=== PATIENT | female | born 1995 | race Hispanic/Latino ===

== ENCOUNTER 2019-07-29 15:24 | Emergency (ER) | payer OTHER | END 2019-07-29 16:57 | disposition home or self-care (01) | LOC: EDH 15:24 | DX: H92.01 Otalgia, right ear (principal) | CPT/HCPCS: 99282 ==

== ENCOUNTER → 2021-10-07 | Outpatient (CLI) | payer OTHER | END | disposition home or self-care (01) | LOC: DTH 09:19 | PROVIDERS: ATTEND Surgery | DX: E66.01 Morbid (severe) obesity due to excess calories (principal); K21.9 Gastro-esophageal reflux disease without esophagitis; E78.00 Pure hypercholesterolemia, unspecified; K76.0 Fatty (change of) liver, not elsewhere classified | CPT/HCPCS: 97803 ==

== ENCOUNTER → 2021-11-05 | Outpatient (CLI) | payer OTHER | END | disposition home or self-care (01) | LOC: DTH 10:41 | PROVIDERS: ATTEND Surgery | DX: Z71.3 Dietary counseling and surveillance (principal); G47.33 Obstructive sleep apnea (adult) (pediatric); K21.9 Gastro-esophageal reflux disease without esophagitis; E78.00 Pure hypercholesterolemia, unspecified; K76.0 Fatty (change of) liver, not elsewhere classified; E66.01 Morbid (severe) obesity due to excess calories; Z68.39 Body mass index [BMI] 39.0-39.9, adult | CPT/HCPCS: 97803 ==

== ENCOUNTER → 2021-12-21 | Outpatient (CLI) | payer OTHER | END | disposition home or self-care (01) | LOC: DTH 08:25 | PROVIDERS: ATTEND Surgery | DX: Z71.3 Dietary counseling and surveillance (principal); E78.00 Pure hypercholesterolemia, unspecified; K76.0 Fatty (change of) liver, not elsewhere classified; K21.9 Gastro-esophageal reflux disease without esophagitis; G47.33 Obstructive sleep apnea (adult) (pediatric); E66.09 Other obesity due to excess calories; Z68.39 Body mass index [BMI] 39.0-39.9, adult | CPT/HCPCS: 97803 ==

== ENCOUNTER 2022-01-10 08:04 | Day surgery (SDC) | payer MEDICAID ==
[2022-01-07 13:46] VITALS: BP 141/76
[~2022-01-10] VITALS: Ht 167.6 cm; Wt 116.8 kg
[~2022-01-10 08:04] MED LIST: GLYCOPYRROLATE 1 MG/5 ML SYRINGE ONE; PROPOFOL 10 MG/ML 20ML VIAL IV ONE
[2022-01-10 09:30] VITALS: BP 95/43
[2022-01-10 09:35] VITALS: BP 100/48
[2022-01-10 09:41] VITALS: BP 96/47
[2022-01-10] MEDS ORDERED: 0.9%NACL 1000ML 1,000 ML IV ONE (10:09)
== END 2022-01-10 10:27 | disposition home or self-care (01) ==
LOC: ENDO 08:04 → DAH 08:04 → ENDO 10:27
PROVIDERS: ATTEND Surgery
DX: K21.9 Gastro-esophageal reflux disease without esophagitis (principal); E66.01 Morbid (severe) obesity due to excess calories; Z98.891 History of uterine scar from previous surgery; Z82.49 Family history of ischemic heart disease and other diseases of the circulatory system; Z68.41 Body mass index [BMI] 40.0-44.9, adult
CPT/HCPCS: 71045; 87635; 84703; 36415; 93005; 43235; C9803; J3490 ×2; J7030; J2704

== ENCOUNTER → 2022-01-12 | Outpatient (CLI) | payer OTHER | END | disposition home or self-care (01) | LOC: DTH 10:02 | PROVIDERS: ATTEND Surgery | DX: Z71.3 Dietary counseling and surveillance (principal); E78.00 Pure hypercholesterolemia, unspecified; K76.0 Fatty (change of) liver, not elsewhere classified; K21.9 Gastro-esophageal reflux disease without esophagitis; G47.33 Obstructive sleep apnea (adult) (pediatric); E66.09 Other obesity due to excess calories; Z68.39 Body mass index [BMI] 39.0-39.9, adult | CPT/HCPCS: 97803 ==

== ENCOUNTER 2022-09-26 00:31 | Emergency (ER) | payer MEDICAID, OTHER ==
[~2022-09-26] VITALS: Ht 170.2 cm; Wt 90.7 kg
[2022-09-26 00:52] VITALS: BP 137/85
[2022-09-26] MEDS ORDERED: AMOX500C2 PO (01:01)
[2022-09-26] MEDS ORDERED: IBUP-1493 PO (01:01)
[2022-09-26] MEDS ORDERED: AMOXICILLIN 500 MG CAPSULE PO ONE (01:30)
== END 2022-09-26 01:11 | disposition home or self-care (01) ==
LOC: EDH 00:31
DX: J03.90 Acute tonsillitis, unspecified (principal); Z20.822 Contact with and (suspected) exposure to COVID-19
CPT/HCPCS: 87635; 87804; 87880

== ENCOUNTER 2023-07-05 21:42 | Emergency (ER) | payer BC, MEDICAID ==
[~2023-07-05] VITALS: Ht 170.2 cm; Wt 88.9 kg
[~2023-07-05 21:42] MED LIST changes: +AMOX500C2 PO; -GLYCOPYRROLATE 1 MG/5 ML SYRINGE ONE; +IBUP-1493 PO; -PROPOFOL 10 MG/ML 20ML VIAL IV ONE
[2023-07-05 23:25] VITALS: BP 129/74; PULSE 82; RESP 18; O2SAT 98
[2023-07-05] MEDS ORDERED: CEPH500T PO (23:58)
[2023-07-06] MEDS ORDERED: CEPHALEXIN 500 MG CAPSULE PO ONE
== END 2023-07-06 00:31 | disposition home or self-care (01) ==
LOC: EDH 21:42
DX: L08.9 Local infection of the skin and subcutaneous tissue, unspecified (principal); R10.33 Periumbilical pain; Z98.84 Bariatric surgery status
CPT/HCPCS: 87070; 87076

== ENCOUNTER 2024-06-18 09:29 | Emergency (ER) | payer BC ==
[~2024-06-18] VITALS: Ht 170.2 cm; Wt 86.2 kg
[2024-06-18 09:29] VITALS: BP 125/52; PULSE 70; RESP 20; TEMP 98.6
[~2024-06-18 09:29] MED LIST changes: +CEPH500T PO
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
== END 2024-06-18 10:15 | disposition home or self-care (01) ==
LOC: EEVIPCON 09:29 → EDH 09:29
DX: S06.0XAA Concussion with loss of consciousness status unknown, initial encounter (principal); Z98.84 Bariatric surgery status; Y04.0XXA Assault by unarmed brawl or fight, initial encounter; Y93.89 Activity, other specified; Y92.89 Other specified places as the place of occurrence of the external cause; Y99.8 Other external cause status
CPT/HCPCS: 99281